=== PATIENT | female | born 1955 | race Caucasian/White ===

== ENCOUNTER 2016-07-26 10:34 | Emergency (ER) | payer OTHER ==
[~2016-07-26] VITALS: Ht 165.1 cm; Wt 122.9 kg
[2016-07-26] MEDS ORDERED: FIORICET,ESG1 TABLET PO (12:34)
[2016-07-26] MEDS ORDERED: ZOFRAN ODT4 MG PO (12:34)
[2016-07-26 12:41] VITALS: BP 155/66
== END 2016-07-26 12:43 | disposition home or self-care (01) ==
LOC: EME 10:34
DX: F07.81 Postconcussional syndrome (principal); G44.301 Post-traumatic headache, unspecified, intractable; Z91.040 Latex allergy status
CPT/HCPCS: 70450; 99281; 99284

== ENCOUNTER → 2017-04-28 | Outpatient (CLI) | payer OTHER ==
[~2017-04-28] MED LIST: FIORICET,ESG1 TABLET PO; ZOFRAN ODT4 MG PO
== END | disposition home or self-care (01) ==
LOC: CDC 15:19
DX: Z01.810 Encounter for preprocedural cardiovascular examination (principal); M25.561 Pain in right knee; S83.241D Other tear of medial meniscus, current injury, right knee, subsequent encounter; I49.3 Ventricular premature depolarization
CPT/HCPCS: 93000